=== PATIENT | male | born 1955 | race Hispanic/Latino ===

== ENCOUNTER → 2024-03-08 | Outpatient (CLI) | payer OTHER ==
--- NOTE | 2024-03-09 12:01 | HMCIMG ---
COLON-GASTROGRAFIN REASON: COLOSTOMY STATUS. COMPARISON: None TECHNIQUE: Gastrografin enema study was performed with rectal tube. Subsequently, Gastrografin enema study was performed through the colostomy tube. FINDINGS: No obstruction to the retrograde passage of contrast is noted from rectum through rectosigmoid stump. There is no obstruction to the retrograde passage of Gastrografin from the left colon colostomy site. No constricting lesion is seen. IMPRESSION: No obstruction or constricting lesion is seen.
== END | disposition home or self-care (01) ==
LOC: RAH 14:08
PROVIDERS: ATTEND Surgery
DX: D12.3 Benign neoplasm of transverse colon (principal); K56.2 Volvulus; Z93.3 Colostomy status
CPT/HCPCS: 74270

== ENCOUNTER → 2024-03-27 | Outpatient (CLI) | payer OTHER ==
[2024-03-27 19:17] LABS: AMYLASE,BODY FLUID 19 U/L; LIPASE,BODY FLUID 18 U/L
[2024-03-27 19:18] LABS: TRIGLYCERIDES,BODY FLUID 1128 mg/dL
== END | disposition home or self-care (01) ==
LOC: LAB 17:22
PROVIDERS: ATTEND Surgery
DX: K56.2 Volvulus (principal); I10 Essential (primary) hypertension
CPT/HCPCS: 82150; 83690; 84478